=== PATIENT | female | born 1980 | race Caucasian/White ===

== ENCOUNTER 2016-09-29 22:38 | Inpatient (IN) | payer MEDICAID ==
[~2016-09-29] VITALS: Ht 157.5 cm; Wt 71.8 kg
[~2016-09-29 22:38] MED LIST: PROPYLTHIOURACI50 M1 PO
[2016-09-29 22:52] VITALS: BP 136/74
--- NOTE | 2016-09-29 22:57 | NUR ---
PT TAKEN TO BED 5
--- NOTE | 2016-09-29 23:00 | NUR ---
Dr. Brown evaluating patient at bedside.
--- NOTE | 2016-09-29 23:00 | NUR ---
36 Y/O BIB , RELEASED THIS AM FROM HOSPITAL, HAS ECTOPIC , 5 WEEKS ALONG BROWN DISCHARGE. ER MD AT BED SIDE. PT ON MEDICAL RECEPTIONIST MEDICAL ASSISTANT.
[2016-09-29] MEDS ORDERED: NACL 0.9% 1,000 ML IV ONE (23:05)
[2016-09-29] MEDS ORDERED: MORPHINE SULFATE 4 MG/ML SYR IVP ONE (23:05)
[2016-09-30] MEDS ORDERED: MORPHINE SULFATE 4 MG/ML SYR IVP ONE (00:35)
[2016-09-30] MEDS ORDERED: ONDANSETRON 4 MG/2 ML VIAL IVP ONE (00:35)
--- NOTE | 2016-09-30 01:30 | NUR ---
Patient appears to be resting comfortably in bed. Vital Signs within normal limits. Respirations even and unlabored.
--- NOTE | 2016-09-30 02:30 | NUR ---
Patient will be admitted to care of DR. ORTIZ. Admited to TELEMETRY. Will go to room 110A. Belongings list completed. Report to JW SHIPMAN.
[2016-09-30 02:35] VITALS: BP 123/75
--- NOTE | 2016-09-30 02:35 | NUR ---
ADMITTED A 36F FROM ER. CAME BY KENNY AND ACCOMPANIED BY . AWAKE,ALERT AND ORIENTED X4. WOLOF SPEAKING , WITH SOME TAMAZIGHT. ON TELE MONITOR. AMBULATORY. SKIN INTACT ,JUST BRUISED FROM RT ARM , SHE SAID FROM IV YESTERDAY WHEN STILL IN HOSPITAL. CAME DUE TO LEFT LOWER ABDOMINAL PAIN X 1 DAY. WITH SCANTY DRAIN BROWNISH COLOR. STILL WITH TOLERABLE PAIN AT THIS TIME. ORIENTED TO HOSPITAL ROUTINES, USE OF CALL LIGHT , VISITING HOURS. PLAN OF CARE DISCUSSED. VERBALIZED UNDERSTANDING. INSTRUCTED TO CALL FOR ANY ASSISTANCE. WILL CONTINUE TO MONITOR WAITING FOR ADMITTING ORDERS.
[2016-09-30 04:50] VITALS: BP 102/59
--- NOTE | 2016-09-30 05:03 | NUR ---
ANA LUISA NAVAS FOR ADMITTING ORDERS.
--- NOTE | 2016-09-30 05:08 | NUR ---
DR.T. Hu NAVAS CALLED BACK WITH ORDERS.
[2016-09-30] MEDS ORDERED: MORPHINE SULFATE 4 MG/ML SYR IVP PRN (05:10)
[2016-09-30] MEDS: LACTATED RINGERS 1,000 ML IV SCH ×3 (05:30→15:33)
--- NOTE | 2016-09-30 06:30 | NUR ---
PT ASLEEP AT THIS TIME. NO S/S OF ANY DISCOMFORT NOR PAIN NOTED.
--- NOTE | 2016-09-30 07:15 | NUR ---
DR. ORTIZ CAME AND SEEN PT WITH ORDER.
[2016-09-30] MEDS ORDERED: METHOTREXATE 100 MG/4 ML VIAL IM SCH (07:16)
--- NOTE | 2016-09-30 07:25 | NUR ---
ENDORSED PT IN STABLE CONDITION TO AM NURSE FOR CONTINUITY OF CARE.
--- NOTE | 2016-09-30 07:27 | NUR ---
RECEIVED REPORT FROM NIGHT RN. PT RESTING IN BED. AAOX4. NO S/S OF ACUTE DISTRESS. PT DENIES PAIN. IV SITE PATENT AND INTACT. CALL LIGHT WITHIN REACH. SAFETY MEASURES ENSURED. WILL CONTINUE TO MONITOR.
[2016-09-30 07:50] VITALS: BP 110/65
--- NOTE | 2016-09-30 08:56 | NUR ---
PATIENT HAS BEEN SCREENED AND CATEGORIZED LOW NUTRITION RISK. PATIENT WILL BE SEEN WITHIN 7 DAYS OF ADMISSION. 10/06/[address]
--- NOTE | 2016-09-30 09:49 | NUR ---
PT RESTING IN BED. NO S/S OF ACUTE DISTRESS. PT DENIES PAIN OR ANY VAGINAL DISCHARGE AT THIS TIME. CALL LIGHT WITHIN REACH. SON AT BEDSIDE. WILL CONTINUE TO MONITOR.
--- NOTE | 2016-09-30 11:48 | NUR ---
PT RESTING IN BED. NO S/S OF ACUTE DISTRESS. PT DENIES PAIN. CALL LIGHT WITHIN REACH. SAFETY MEASURES ENSURED. FAMILY AT BEDSIDE. WILL CONTINUE TO MONITOR.
[2016-09-30 12:00] VITALS: BP 121/65
--- NOTE | 2016-09-30 14:01 | NUR ---
PT RESTING IN BED. NO S/S OF ACUTE DISTRESS. PT DENIES PAIN. CALL LIGHT WITHIN REACH. SAFETY MEASURES ENSURED. WILL CONTINUE TO MONITOR.
[2016-09-30 16:00] VITALS: BP 105/59
--- NOTE | 2016-09-30 16:34 | NUR ---
PT RESTING IN BED. NO S/S OF ACUTE DISTRESS. PT DENIES PAIN. CALL LIGHT WITHIN REACH. WILL CONTINUE TO MONITOR.
--- NOTE | 2016-09-30 19:13 | NUR ---
ENDORSED PLAN OF CARE TO NIGHT RN. PT REMAINS IN STABLE CONDITION.
--- NOTE | 2016-09-30 19:30 | NUR ---
RECEIVED REPORT FROM MECCA ESCALERA AT BEDSIDE. PT IS ALERT AWAKE ORIENTED X4. INITIAL ASSESSMENT DONE. NO S/S OF RESPIRATORY DISTRESS OR SOB NOTED. NO C/O PAIN OR ANY DISCOMFORT AT THIS TIME. PLAN OF CARE REVIEWED TO PATIENT AND VERBALIZED UNDERSTANDING. CALL LIGHT WITHIN REACH. WILL CONTINUE TO MONITOR.
[2016-10-01] VITALS: BP 109/63
--- NOTE | 2016-10-01 00:30 | NUR ---
PT IS SLEEPING RIGHT NOW BUT EASILY AROUSABLE. NO S/S OF ANY DISCOMFORT AT THIS TIME. ALL NEEDS ARE ATTENDED CALL LIGHT WITHIN REACH. WILL CONTINUE TO MONITOR.
[2016-10-01] MEDS: LACTATED RINGERS 1,000 ML IV SCH (02:02)
--- NOTE | 2016-10-01 05:45 | NUR ---
AM CARE RENDERED. BED LINEN CHANGED. INSTRUCTED PT TO REPOSITION. KEPT CLEAN AND DRY. CALL LIGHT WITHIN REACH. WILL CONTINUE TO MONITOR.
--- NOTE | 2016-10-01 07:26 | NUR ---
PT HAS NO S/S OF ANY DISCOMFORT. PLAN OF CARE ENDORSED TO MADY ESCALERA AT BEDSIDE FOR CONTINUITY OF CARE.
[2016-10-01 08:00] VITALS: BP 125/72
[2016-10-01 09:21] VITALS: BP 125/72
== END 2016-10-01 09:40 | disposition home or self-care (01) | DRG 251 ==
LOC: MED 22:38 → MTU 09-30 02:31
PROVIDERS: ADMIT Obstetrics & Gynecology; ATTEND Obstetrics & Gynecology
DX: R10.9 Unspecified abdominal pain (principal); Z88.8 Allergy status to other drugs, medicaments and biological substances; Z33.1 Pregnant state, incidental; Z79.899 Other long term (current) drug therapy; Z3A.01 Less than 8 weeks gestation of pregnancy